=== PATIENT | female | born 1980 ===

== ENCOUNTER 2018-06-27 13:25 | Observation (INO) | payer MEDICAID ==
[2018-06-27] MEDS ORDERED: METH250T21 PO (14:19)
[2018-06-27] MEDS ORDERED: FOLI1TAB6 PO (14:20)
[2018-06-27] MEDS ORDERED: METF-371 PO (14:21)
== END 2018-06-27 16:45 | disposition home or self-care (01) | DRG 566 ==
LOC: LDRP 13:25
PROVIDERS: ADMIT Obstetrics & Gynecology; ATTEND Obstetrics & Gynecology
DX: O26.893 Other specified pregnancy related conditions, third trimester (principal); M54.2 Cervicalgia; R10.9 Unspecified abdominal pain; R51 Headache; Z3A.32 32 weeks gestation of pregnancy
CPT/HCPCS: 59025; 76818; 81002; G0378

== ENCOUNTER 2018-07-16 12:20 | Observation (INO) | payer MEDICAID ==
[~2018-07-16 12:20] MED LIST: FOLI1TAB6 PO; METF-371 PO; METH250T21 PO
== END 2018-07-16 13:52 | disposition home or self-care (01) | DRG 566 ==
LOC: LDRP 12:20
PROVIDERS: ADMIT Obstetrics & Gynecology; ATTEND Obstetrics & Gynecology
DX: O00.01 Abdominal pregnancy with intrauterine pregnancy (principal); O10.913 Unspecified pre-existing hypertension complicating pregnancy, third trimester; O36.8130 Decreased fetal movements, third trimester, not applicable or unspecified; Z3A.34 34 weeks gestation of pregnancy
CPT/HCPCS: 59025; 81002; G0378